=== PATIENT | male | born 2000 | race Two or more races ===

== ENCOUNTER 2025-02-01 06:46 | Outpatient (CLI) | payer OTHER ==
[2025-02-01 07:56] LABS: BASO % 0.6 % (0.1-1.2); EOS # 0.23 (0.04-0.54); EOS % 4.3 % (0.7-7.0); LYMPH # 1.37 (1.18-3.74); LYMPH % 25.6 % (19.3-53.1); MEAN PLATELET VOLUME 9.70 fl (9.4-12.4); MONO # 0.44 (0.24-0.82); MONO % 8.2 % (4.7-12.5); NEUT # 3.24 (1.56-6.13); NEUT % 60.4 % (34.0-71.1); RED CELL DISTRIBUTION WIDTH 11.7 % (11.6-14.4)
[2025-02-01 08:32] LABS: % SATURACION 21.1 % (20-50); ALT/SGPT 74.0 U/L (12-78); AST/SGOT 18.0 U/L (15-37); BILIRUBIN TOTAL 0.2 mg/dL (0.3-1.2); BUN CREA RATIO 16.0 (7.0-25.0); CREATININE SERUM 0.82 mg/dL (0.70-1.30); FE 56.0 ug/dl (65-175); GFR 113.57; GLOBULINA 4.7 G/DL (2.4-3.5); GLUCOSE FASTING 106.0 mg/dL (65-100); LDH 116.0 U/L (87-241); OSMOLALITY SERUM 282.0 MOSM/KG (275-295); PROSTATIC SPECIFIC ANTIGEN 1.03 NG/ML (0.010-4.00); T3 UPTAKE 34.0 % (33-40); T4 TOTAL 9.2 UG/DL (4.5-12.1); TSH 1.09 uIU/mL (0.358-3.74)
[2025-02-01 10:39] LABS: FOLIC ACID 17.21 ng/ml (4.78-20); T3 TOTAL 1.18 ng/ml (0.846-2.02)
[2025-02-02 09:11] LABS: ANTI THYROID PEROXIDASE 71.0 IU/mL (0-34)
[2025-02-04 13:07] LABS: PARIETAL CELL ANTIBODIES 3.4 Units (0.0-20.0)
== END 2025-02-01 06:47 | disposition home or self-care (01) ==
LOC: LAB 06:46
PROVIDERS: ATTEND Internal Medicine Hematology & Oncology
DX: D50.8 Other iron deficiency anemias (principal); E04.0 Nontoxic diffuse goiter; D51.3 Other dietary vitamin B12 deficiency anemia; I10 Essential (primary) hypertension; R74.02 Elevation of levels of lactic acid dehydrogenase [LDH]; K76.89 Other specified diseases of liver; D51.1 Vitamin B12 deficiency anemia due to selective vitamin B12 malabsorption with proteinuria; E03.8 Other specified hypothyroidism; E06.3 Autoimmune thyroiditis; R97.0 Elevated carcinoembryonic antigen [CEA]

== ENCOUNTER 2025-02-28 08:03 | Outpatient (CLI) | payer OTHER | END 2025-02-28 08:04 | disposition home or self-care (01) | LOC: SONOGRAMA 08:03 | PROVIDERS: ATTEND Pathology Anatomic Pathology & Clinical Pathology | DX: C73 Malignant neoplasm of thyroid gland (principal); E04.2 Nontoxic multinodular goiter ==

== ENCOUNTER 2025-04-04 06:00 | Day surgery (SDC) | payer OTHER ==
[2025-03-29 08:02] LABS: URINE APPEARANCE Clear; URINE BILIRRUBIN Negative (NEGATIVE); URINE BLOOD Negative; URINE COLOR Yellow; URINE GLUCOSE Negative (NEGATIVE); URINE KETONE Negative (NEGATIVE); URINE LEUKOCYTE Negative; URINE NITRATE Negative; URINE PROTEIN Negative (NEGATIVE); URINE UROBILINOGEN 0.2 E.U./dl
[2025-03-29 08:07] LABS: URINE BACTERIA 7.2 uL (0.0-1933); URINE EPITHELIAL CELLS 3.3 uL (0.0-38.8); URINE RBC 4.9 uL (0.0-20.8); URINE WBC 4.7 uL (0.0-23.2)
[2025-03-29 08:18] VITALS: BP 120/74
[2025-03-29 08:18] LABS: BASO % 0.7 % (0.1-1.2); EOS # 0.21 (0.04-0.54); EOS % 2.9 % (0.7-7.0); LYMPH # 1.45 (1.18-3.74); LYMPH % 20.3 % (19.3-53.1); MEAN PLATELET VOLUME 10.80 fl (9.4-12.4); MONO # 0.67 (0.24-0.82); MONO % 9.4 % (4.7-12.5); NEUT # 4.76 (1.56-6.13); NEUT % 66.4 % (34.0-71.1); RED CELL DISTRIBUTION WIDTH 13.9 % (11.6-14.4)
[2025-03-29 08:22] LABS: URINE CAST 0.00 uL (0.0-1.40)
[2025-03-29 08:45] LABS: INR 0.94
[2025-03-29 08:50] LABS: ALT/SGPT 50.0 U/L (12-78); AST/SGOT 19.0 U/L (15-37); BILIRUBIN TOTAL 0.31 mg/dL (0.3-1.2); BUN CREA RATIO 23.0 (7.0-25.0); CREATININE SERUM 0.84 mg/dL (0.70-1.30); GFR 110.45; GLOBULINA 3.3 G/DL (2.4-3.5); GLUCOSE FASTING 97.0 mg/dL (65-100); OSMOLALITY SERUM 285.0 MOSM/KG (275-295)
[~2025-04-04] VITALS: Ht 188 cm; Wt 93.0 kg
[2025-04-04] MEDS ORDERED: DEXAMETHASONE SODIUM PHOSPHATE 4 MG/ML VIAL ONE (06:44)
== END 2025-04-04 13:05 | disposition home or self-care (01) ==
LOC: CIR.AMB 06:00
PROVIDERS: ATTEND Surgery
DX: C73 Malignant neoplasm of thyroid gland (principal)